=== PATIENT | female | born 1995 | race Caucasian/White ===

== ENCOUNTER 2017-07-11 15:51 | Emergency (ER) | payer SELFPAY ==
[~2017-07-11] VITALS: Ht 160 cm; Wt 50.0 kg
[2017-07-11 15:59] VITALS: BP 107/72; PULSE 69; RESP 16; TEMP 97.4; O2SAT 99
--- NOTE | 2017-07-11 17:24 | PD ---
HPI Chief Complaint: Injury Time Seen by Provider: 17:11 Travel History International Travel<30 days: No Contact w/Intl Traveler<30days: No Traveled to known affect area: No History of Present Illness HPI 22-year-old female presents emergency department for evaluation of left elbow pain after falling this afternoon. Patient says that she was cheerleading and fell while performing a stunt, landing on her left elbow. Says initially she felt numbness and tingling in bilateral upper extremities but denies any this currently. Mother says that she was hyperventilating which may have been the reason for the sensations. States she has severe pain, especially with palpation and movement of the elbow. Patient denies any head trauma, loss of consciousness, dizziness, neck pain, back pain, leg pain. Says she took an Aleve prior to arrival. Says she has a history of spina bifida but denies any complications involving this. Patient does not take any medications regularly. PFSH Past Medical History ?: Not LMP: CURRENTLY Social History Tobacco Use: No Allergies-Medications (Allergen,Severity, Reaction): Coded Allergies: No Known Allergies (Unverified , 07/11/17) Review of Systems Except as stated in HPI: all other systems reviewed are Neg Physical Exam Narrative GENERAL: Well-developed, well-nourished in mild distress SKIN: Focused skin assessment warm/dry. No obvious tenting or ecchymosis present HEAD: Atraumatic. Normocephalic. EYES: Pupils equal and round. No scleral icterus. No injection or drainage. ENT: No nasal bleeding or discharge. Mucous membranes pink and moist. NECK: Trachea midline. No JVD. No midline tenderness CARDIOVASCULAR: Regular rate and rhythm. No murmur appreciated. RESPIRATORY: No accessory muscle use. Clear to auscultation. Breath sounds equal bilaterally. GASTROINTESTINAL: Abdomen soft, non-tender, nondistended. Hepatic and splenic margins not palpable. MUSCULOSKELETAL: No obvious deformities. No clubbing. No cyanosis. No edema. Left elbow-no ecchymosis or tenting of the elbow. There is an obvious deformity. BACK: No CVA tenderness. No rash. No point tenderness on palpation of the spine. NEUROLOGICAL: Awake and alert. No obvious cranial nerve deficits. Motor grossly within normal limits. Normal speech. PSYCHIATRIC: Appropriate mood and affect; insight and judgment normal. Data Data Last Documented VS Vital Signs Date Time Temp Pulse Resp B/P (MAP) Pulse Ox O2 Delivery O2 Flow Rate FiO2 07/11/17 19:45 75 16 117/74 (88) 100 Room Air 07/11/17 15:59 97.4 Orders Orders Elbow, Limited (Ap&Lat) (07/11/17 ) Acetamin-Hydrocod 325-5 Mg ([place] 5-325 (07/11/17 17:30) Morphine Inj (Morphine Inj) (07/11/17 17:45) Ondansetron Inj (Zofran Inj) (07/11/17 17:45) Splinting (07/11/17 ) Etomidate Inj (Amidate Inj) (07/11/17 18:15) Elbow, Limited (Ap&Lat) (07/11/17 18:26) Ed Discharge Order (07/11/17 19:41) Sling Cradle Arm (07/11/17 ) Fiberglass Splint Elbow Adult (07/11/17 ) MDM Medical Decision Making Medical Screen Exam Complete: Yes Emergency Medical Condition: Yes Differential Diagnosis left Elbow fracture, elbow dislocation, elbow contusion Narrative Course 22 y female presents emergency department evaluation of left elbow pain after falling directly onto this today while cheerleading. Vital signs are stable. Physical exam findings consistent with elbow dislocation versus fracture. Morphine administered for pain. Patient will require a reduction of this elbow. [employer], respiratory therapy, and nursing staff were in the room for elbow reduction. Elbow was successfully reduced and rechecked neurovascular status. Pt remained neurovascularly intact. Says she does feel better as well. Pt discharged and advised to take OTC tylenol or motrin. Follow up with orthopedics. Return for worsening or persistent symptoms. Diagnosis Primary Impression: Elbow dislocation Qualified Codes: S53.105A - Unspecified dislocation of left ulnohumeral joint , initial encounter Referrals: Orthopedist Additional Instructions: Follow-up with an military logistics specialist regarding her left arm. Keep your arm in a splint and to follow-up with an military logistics specialist. You may take Tylenol or Motrin per package instructions. If you develop increased swelling, tenderness, loss of pulses, numbness return to the emergency department immediately. Disposition: 01 DISCHARGE HOME Condition: Stable Sol Ortega Jul 11, 2017 17:24
[2017-07-11] MEDS ORDERED: ACETAMINOPHEN/HYDROcodone 325 MG/5 MG TAB PO ONE (17:30)
[2017-07-11] MEDS ORDERED: MORPHINE SULFATE 2 MG/ML SYRINGE IV PUSH ONE (17:45)
[2017-07-11] MEDS ORDERED: ONDANSETRON HCL 4 MG/2 ML VIAL IV PUSH ONE (17:45)
--- NOTE | 2017-07-11 18:13 | RADRPT ---
EXAM DATE/TIME: 07/11/2017 16:50 [facility] COMPARISON: No previous studies available for comparison. INDICATIONS : Pain post fall. MEDICAL HISTORY : None. SURGICAL HISTORY : None. ENCOUNTER: Initial ACUITY: 1 day PAIN SCORE: 7/10 LOCATION: Left Elbow. FINDINGS: There is an elbow dislocation with the radius and ulna being displaced laterally. A fracture is not c learly seen. CONCLUSION: Elbow dislocation. John Martinez MD on July 11, 2017 at 18:10 Board Certified Radiologist. This report was verified electronically.
[2017-07-11] MEDS ORDERED: ETOMIDATE 20 MG/10 ML VIAL IV PUSH ONE (18:15)
--- NOTE | 2017-07-11 18:38 | PD ---
Physical Exam Date Seen by Provider: Jul 11, 2017 Time Seen by Provider: 18:00 Narrative I, Dr. Noyola, have reviewed the advance practice practitioner's documentation and am in agreement, met with the patient face to face, made the diagnosis, and the medical decision making was done by me. *My assessment and Findings: Case was seen and evaluated with PA, please see PA note for further details. X-ray shows that she has a lateral dislocation of her left elbow. Elbow was reduced by me under conscious sedation. Patient tolerated procedure well. Repeat x-ray was done which shows reduction. Patient was observed until completely awake and my plan would be to have her follow-up with orthopedics. Elbow has been placed in a splint. Return for new issues as needed. Data Data Last Documented VS Vital Signs Date Time Temp Pulse Resp B/P (MAP) Pulse Ox O2 Delivery O2 Flow Rate FiO2 07/11/17 17:24 Room Air 07/11/17 15:59 97.4 69 16 107/72 (84) 99 Orders Orders Elbow, Limited (Ap&Lat) (07/11/17 ) Acetamin-Hydrocod 325-5 Mg ([place] 5-325 (07/11/17 17:30) Morphine Inj (Morphine Inj) (07/11/17 17:45) Ondansetron Inj (Zofran Inj) (07/11/17 17:45) Splinting (07/11/17 ) Etomidate Inj (Amidate Inj) (07/11/17 18:15) Elbow, Limited (Ap&Lat) (07/11/17 18:26) MDM Medical Record Reviewed: Yes Supervised Visit with GLADYS: Yes Procedures Procedure Narrative After the risks and benefits were discussed the following procedure was performed: MODERATE SEDATION: The patient was placed on a monitor and storage bin tender and pulse oximetry. An ambu bag and suction was immediately available at bedside. The patient was monitored by the nurse. Oxygen saturation, heart rate and blood pressure were monitored. Procedural sedation was acheived using 10 mg of etomidate. The patient was observed until awake and alert. Procedural Sedation time in attendance was 10 minutes. Diagnosis Primary Impression: Elbow dislocation Qualified Codes: S53.105A - Unspecified dislocation of left ulnohumeral joint , initial encounter Disposition: DISCHARGE HOME Condition: Stable Teresa Noyola MD Jul 11, 2017 18:38
--- NOTE | 2017-07-11 18:51 | RADRPT ---
EXAM DATE/TIME: 07/11/2017 18:29 [facility] COMPARISON: ELBOW LEFT LIMITED (AP & LAT), July 11, 2017, 16:50. INDICATIONS : Post reduction left elbow. MEDICAL HISTORY : None. SURGICAL HISTORY : None. ENCOUNTER: Subsequent ACUITY: 1 day PAIN SCORE: Non-responsive. LOCATION: Left elbow. FINDINGS: Two view examination of the left elbow demonstrates satisfactory reduction of left elbow dislocation. The radiocapitellar and ulnohumeral joints are now well aligned. CONCLUSION: Satisfactory appearance of the left elbow following reduction. Dwight Limon MD on July 11, 2017 at 18:47 Board Certified Radiologist. This report was verified electronically.
[2017-07-11 19:45] VITALS: BP 117/74; PULSE 75; RESP 16; O2SAT 100
== END 2017-07-11 19:47 | disposition home or self-care (01) ==
LOC: NEPC 15:51
DX: S53.105A Unspecified dislocation of left ulnohumeral joint, initial encounter (principal); W19.XXXA Unspecified fall, initial encounter; Y93.45 Activity, cheerleading; Q05.9 Spina bifida, unspecified
CPT/HCPCS: 24600; 73070; 96374; 96375; 99284; J2270; J2405